=== PATIENT | male | born 2000 | race Caucasian/White ===

== ENCOUNTER 2022-02-24 12:19 | Inpatient (IN) | payer OTHER ==
[~2022-02-24] VITALS: Ht 172.7 cm; Wt 68.0 kg
[2022-02-24 14:02] LABS: HEMATOCRIT. 43.6 % (42.0-52.0); HEMOGLOBIN. 14.7 g/dL (14.0-18.0); MEAN CORPUSCULAR HEMOGLOBIN 30.2 pg (28.0-32.0); MEAN CORPUSCULAR VOLUME 89.6 fL (80.0-94.0); PLATELET 208 x1000/uL (130-400); RED BLOOD CELL COUNT 4.86 mill/uL (4.7-6.1); RED CELL DISTRIBUTION WIDTH 13.5 % (11.6-14.6)
[2022-02-24 14:18] LABS: CHLORIDE 106 mEq/L (98-107)
[2022-02-24 14:21] LABS: PLATELET ESTIMATE NORMAL
[2022-02-24 14:35] LABS: ETHANOL BLOOD < 10 mg/dL
[2022-02-24] MEDS ORDERED: LORAZEPAM 2MG/ML CPJ IM ONE (14:45)
[2022-02-24] MEDS ORDERED: HALOPERIDOL LACTATE 5MG/ML VIAL IM ONE (14:45)
[2022-02-24] MEDS ORDERED: ACETYLCYSTEINE 200MG/ML 20% VIAL 30ML (INJ) IV ONE (16:30)
[2022-02-24] MEDS ORDERED: DEXT 5% IV NR ×2 (17:00)
[2022-02-24] MEDS ORDERED: WATER IV NR ×2 (17:00)
[2022-02-24] MEDS ORDERED: ACETYLCYSTEINE IV NR ×2 (17:00)
[2022-02-24 17:14] LABS: PHOSPHORUS 2.3 mg/dL (2.5-4.9)
[2022-02-24 17:19] LABS: CLARITY URINE CLEAR (CLEAR); COLOR URINE YELLOW (YELLOW); KETONES URINE NEGATIVE (NEGATIVE); LEUKOCYTE ESTERASE URINE NEGATIVE (NEGATIVE); NITRITE URINE NEGATIVE (NEGATIVE); OCCULT BLOOD URINE NEGATIVE (NEGATIVE); PROTEIN URINE NEGATIVE (NEGATIVE); SPECIFIC GRAVITY URINE 1.009 (1.005-1.030); UROBILINOGEN URINE 0.2 E.U./dL (0.2-1.0)
[2022-02-24 17:32] LABS: *AMPHETAMINES SCREEN URINE NEGATIVE (NEGATIVE); *BARBITURATES SCREEN URINE NEGATIVE (NEGATIVE); *BENZODIAZEPINES SCREEN URINE NEGATIVE (NEGATIVE); *COCAINE SCREEN URINE NEGATIVE (NEGATIVE); CANNABINOID URINE SCREEN NEGATIVE (NEGATIVE); METHADONE URINE SCREEN NEGATIVE (NEGATIVE); OPIATES URINE SCREEN NEGATIVE (NEGATIVE); PHENCYCLIDINE URINE SCREEN NEGATIVE (NEGATIVE)
[2022-02-24] MEDS ORDERED: CEFTRIAXONE 1 G PREMIX 50 ML IV ONE (18:45)
[2022-02-24] MEDS ORDERED: VANCOMYCIN 1G PREMIX 200 ML IV SCH (21:45)
[2022-02-24] MEDS ORDERED: PIPERACILLIN/TAZOBACTAM 3.375GM/50ML PREMIX IV ONE (21:45)
[2022-02-24] MEDS ORDERED: PIPERACILLIN/TAZ 3.375G PREMIX 50 ML IV NR (21:48)
[2022-02-24] MEDS ORDERED: DEXT 5% IV SCH (23:00)
[2022-02-24] MEDS ORDERED: ACETYLCYSTEINE IV SCH (23:00)
[2022-02-24] MEDS ORDERED: WATER IV SCH (23:00)
[2022-02-25 01:00] VITALS: BP 119/65
[2022-02-25] MEDS ORDERED: VANCOMYCIN 1G PREMIX 200 ML IV NR (02:45)
[2022-02-25] MEDS ORDERED: KCL 20MEQ/100ML PREMIX 100 ML IV SCH (03:00)
[2022-02-25] MEDS: KCL 20MEQ/100ML X 2 FOR TOTAL KCL 40MEQ/200ML IV SCH ×2 (03:30→05:55)
[2022-02-25 04:00] VITALS: BP 111/67
[2022-02-25] MEDS ORDERED: VANCOMYCIN 1.25GM PMX (XELLIA) 250 ML IV SCH (07:00)
[2022-02-25 08:00] VITALS: BP 120/66
[2022-02-25 08:06] LABS: CHLORIDE 107 mEq/L (98-107)
[2022-02-25 08:13] LABS: BASOPHILS % 0.4 % (0.0-2.0); EOSINOPHILS % 0.2 % (0.0-5.0); HEMATOCRIT. 41.9 % (42.0-52.0); HEMOGLOBIN. 14.6 g/dL (14.0-18.0); MEAN CORPUSCULAR HEMOGLOBIN 31.1 pg (28.0-32.0); MEAN CORPUSCULAR VOLUME 89.4 fL (80.0-94.0); MEAN PLATELET VOLUME 9.6 fl (7.4-10.4); MONOCYTES % 6.2 % (2.0-8.0); NEUTROPHILS % 75.2 % (40.0-76.0); PLATELET 204 x1000/uL (130-400); RED BLOOD CELL COUNT 4.69 mill/uL (4.7-6.1); RED CELL DISTRIBUTION WIDTH 13.8 % (11.6-14.6)
[2022-02-25] MEDS ORDERED: POTASSIUM CHLORIDE 20MEQ TABLET SR PO NR (08:30)
[2022-02-25] MEDS: PIPERACILLIN/TAZOBACTAM 3.375 G in DEXTROSE 5% WATER 50 ML IV SCH ×3 (10:20→21:53)
[2022-02-25 12:00] VITALS: BP 119/59
[2022-02-25 16:00] VITALS: BP 106/61
[2022-02-25] MEDS ORDERED: VANCOMYCIN 1GM PMX (XELLIA) 200 ML IV SCH (17:00)
[2022-02-25 20:00] VITALS: BP 111/49
[2022-02-25 20:15] LABS: INR 1.5; PROTHROMBIN TIME 15.2 sec (9.6-11.0)
[2022-02-26] VITALS (7 sets, daily range): BP systolic 103–129; BP diastolic 59–75
[2022-02-26] MEDS: PIPERACILLIN/TAZOBACTAM 3.375 G in DEXTROSE 5% WATER 50 ML IV SCH ×2 (06:33→13:25)
[2022-02-26 08:26] LABS: BASOPHILS % 0.5 % (0.0-2.0); HEMATOCRIT. 43.2 % (42.0-52.0); HEMOGLOBIN. 14.8 g/dL (14.0-18.0); LYMPHOCYTES % 13.8 % (20.0-50.0); MEAN CORPUSCULAR HEMOGLOBIN 31.1 pg (28.0-32.0); MEAN CORPUSCULAR VOLUME 90.7 fL (80.0-94.0); MEAN PLATELET VOLUME 9.4 fl (7.4-10.4); NEUTROPHILS % 79.7 % (40.0-76.0); PLATELET 199 x1000/uL (130-400); RED BLOOD CELL COUNT 4.76 mill/uL (4.7-6.1)
[2022-02-26 08:42] LABS: CHLORIDE 109 mEq/L (98-107)
[2022-02-26] MEDS: FLUOXETINE HCL 10 MG CAPSULE PO SCH (15:15)
[2022-02-26] MEDS: ARIPIPRAZOLE 5MG TABLET PO SCH (15:15)
[2022-02-26] MEDS ORDERED: ZOLPIDEM TARTRATE 5MG TABLET PO PRN (22:45)
[2022-02-27] VITALS (7 sets, daily range): BP systolic 117–126; BP diastolic 61–76
[2022-02-27] MEDS: ARIPIPRAZOLE 5MG TABLET PO SCH (09:00)
[2022-02-27] MEDS: FLUOXETINE HCL 10 MG CAPSULE PO SCH (09:00)
[2022-02-28] VITALS: BP 122/79
== END 2022-02-28 01:30 | DRG 918 ==
LOC: ER 12:25 → EDBEDREQTM 21:52 → EDBEDREQ 21:52 → MICUSO 02-25 01:05 → 6WST 02-25 01:44
PROVIDERS: ADMIT Internal Medicine; ATTEND Internal Medicine
DX: T39.1X1A Poisoning by 4-Aminophenol derivatives, accidental (unintentional), initial encounter (principal); F33.2 Major depressive disorder, recurrent severe without psychotic features; Z20.822 Contact with and (suspected) exposure to COVID-19; D72.825 Bandemia; Y92.89 Other specified places as the place of occurrence of the external cause; Z56.0 Unemployment, unspecified
CPT/HCPCS: 36415; 71045; 80048; 80053; 80076; 80202; 80305; 80307; 80320; 80329; 81003; 83605; 83735; 84100; 84443; 85025; 87426; 93005; 99291; C9803; J0132; J0696; J1630; J2060; J2543; J3370; J3480; J7060; U0003; U0005; G0480